=== PATIENT | male | born 1975 | race Caucasian/White ===

== ENCOUNTER 2017-08-05 14:52 | Emergency (ER) ==
[2017-08-05 14:59] VITALS: BP 131/84; TEMP 98.1; BMI 34.3
[2017-08-05] MEDS ORDERED: MOTRIN PO STA (15:30)
--- NOTE | 2017-08-05 15:31 | ED.PDOC ---
General ED Provider: Dr. IVAN LINDSEY Chief Complaint: Ankle Pain/Injury Stated Complaint: Lt ankle pain. States stepped down on a rock twisting Lt Ankle. Has severe swelling and pain Mode of Arrival: Walk-In Information Source: Patient Exam Limitations: Clinical condition Nursing and Triage Documentation Reviewed and Agree: Yes Reviewed sepsis parameters & appropriate labs ordered?: Yes System Inflammatory Response Syndrome: Not Applicable Sepsis Protocol: For patient's 13 years and over: Temp is 96.8 and below OR 101 and greater Pulse >90 BPM Resp >20/minute Acutely Altered Mental Status Are patient's symptoms suggestive of a new infection, such as: -Pneumonia -Skin, Soft Tissue -Endocarditis -UTI -Bone, Joint Infection -Implantable Device -Acute Abdominal Infection -Wound Infection -Meningitis -Blood Stream Catheter Infection -Unknown System Inflammatory Response Syndrome: Not Applicable Trauma/Injury Complaint Exam - Trauma Complaint/Exam Location of Pain or Injury: Reports: LLE (ankle) Mechanism of Injury: Reports: Fall Symptoms Are: Still present Timing of Treatment: Immediate Initial Severity: Moderate Current Severity: Moderate Character: Reports: Aching, Pressure Aggravating: Reports: Movement, Weight-bearing, Ambulation Alleviating: Reports: Rest Associated Signs and Symptoms: Denies: LOC, Confusion, Memory loss, Lethargy, Vomiting, Bleeding, Bruising, Swelling, Extremity disuse, Painful respiration, Hoarseness, Dysphagia, Hemoptysis, Significant blood loss Related History: Denies: Anticoagulants, Occupational injury Skin Findings: Present: Tenderness, Swelling. Absent: Ecchymosis Differential Diagnoses: Fracture, Sprain, Strain Review of Systems - Review Of Systems Constitutional: Reports: No symptoms Eyes: Reports: No symptoms Ears, Nose, Mouth, Throat: Reports: No symptoms Respiratory: Reports: No symptoms Cardiac: Reports: No symptoms GI: Reports: No symptoms : Reports: No symptoms Musculoskeletal: Reports: No symptoms, Joint swelling Skin: Reports: No symptoms Neurological: Reports: No symptoms Endocrine: Reports: No symptoms Hematologic/Lymphatic: Reports: No symptoms All Other Systems: Reviewed and Negative Past Medical History - Social History Smoking Status: Former smoker Hx Substance Use: No Alcohol Screening: None Physical Exam - Physical Exam Ill-appearing: None Pain Distress: Moderate Eyes: GANESH, EOMI, Conjunctiva clear ENT: Ears normal, Nose normal, Oropharynx normal Respiratory: Airway patent, Breath sounds clear, Breath sounds equal, Respirations nonlabored Cardiovascular: RRR, Pulses normal, No rub, No murmur GI/: Soft, Nontender, No masses, Bowel sounds normal, No Organomegaly Musculoskeletal: Normal strength, ROM intact (Reduced ROM Flexion Lt ankle), No calf tenderness, Edema (Neg ecchymoses) Skin: Warm, Dry, Normal color Neurological: Sensation intact, Motor intact, Reflexes intact, Cranial nerves intact, Alert, Oriented Psychiatric: Affect appropriate, Mood appropriate Interpretation - Radiology Interpretation Radiology Interpretation By: ED Physician Radiology Results: Negative Exam Interpreted: Other (lt ankle ) Course - Course Vital Signs: Temp Pulse Resp BP Pulse Ox 08/05/17 14:53 98.1 F 129 H 20 131/84 94 L Departure - Departure Time of Disposition: 15:50 Disposition: HOME SELF-CARE Discharge Problem: Left ankle sprain Instructions: Ankle Sprain (ED) Condition: Good Pt referred to PMD for follow-up: Yes IPMP verified?: No Additional Instructions: Keep ankle elevated NO Weight bearing ambulation Ice pack to area of discomfort air cast ankle splint Allergies/Adverse Reactions: Allergies Sulfa (Sulfonamide Antibiotics) Adverse Reaction (Verified 08/05/17 14:59) Home Medications: Ambulatory Orders Lorazepam [Ativan] 2 mg PO BID 08/05/17 Disposition Discussed With: Patient
--- NOTE | 2017-08-05 15:55 | DI ---
EXAM: Three views of the left ankle. History: Left ankle pain and swelling with trauma. Findings: No acute fracture or dislocation. No abnormal calcifications or radiopaque foreign bodies . Mild lateral soft tissue swelling. Joint spaces are preserved. Impression: No acute osseous abnormality. Mild lateral soft tissue swelling
== END 2017-08-05 17:10 | disposition home or self-care (01) ==
LOC: ED 14:52
DX: S93.402A Sprain of unspecified ligament of left ankle, initial encounter (principal); X50.1XXA Overexertion from prolonged static or awkward postures, initial encounter
CPT/HCPCS: 80306; 99283